=== PATIENT | male | born 1995 | race Caucasian/White ===

== ENCOUNTER 2017-05-24 12:30 | Emergency (ER) | payer SELFPAY ==
[2017-05-24 12:37] VITALS: BP 128/61; BMI 26.4
--- NOTE | 2017-05-24 13:08 | DR.GENAD ---
HPI - PCP Primary Care Physician: NFD - Complaint/Symptoms Chief Complaint Doctors Comments: Patient presents with complain of upper back pain for greater than two weeks. He denies any injury. He was seen two weeks ago while in [place] medicated with antibiotics according to patient; he was advised to follow up in two days if no better. Chief Complaint:: PATIENT STATED THAT HIS BACK HAS BEEN HURTING FOR THE LAST COUPLE OF WEEKS. HE STATED THAT HE WENT TO A ER IN [place] WITH THE PAIN AND HAS NEVER FOLLOWED UP WITH ANYONE. - Source History Provided: Patient - Mode of Arrival Mode of Arrival: Ambulatory - Timing Onset of Chief Complaint: 05/10/17 PMH - PMH Past Medical History: No Past Surgical History: Yes Surgical History: Ortho Surgery - Family History History of Family Medical Conditions: Yes Family Medical History: Cancer Family Medical History Comment: SEIZURES - Social History Does patient currently use any type of tobacco product: Yes Have you used tobacco products in the last 12 months: Yes Type of Tobacco Use: Cigars Does any household member use tobacco: No Alcohol Use: Occasionally Do you use any recreational Drugs:: No Lives With: Family Lives Where: Home - infectious screening In the last 2 months have you had wt loss of >10#?: NO Have you had fever, night sweats or hemotysis?: No Have you traveled outside the country in the last 6 months?: No Isolation: Standard ROS - Review of Systems Constitutional: No Symptoms Reported, Malaise ENTM: No Symptoms Reported Respiratoy: No Symptoms Reported Cardiovascular: No Symptoms Reported Gastrointestinal/Abdominal: No Symptoms Reported Genitourinary: No Symptoms Reported Neurological: No Symptoms Reported Musculoskeletal: No Symptoms Reported Integumentary: No Symptoms Reported Hematologic/Lymphatic: No Symptoms Reported Endocrine: No Symptoms Reported Psychiatric: No Symptoms Reported All Other Systems: Reviewed and Negative PE - Vital Signs Vitals: Temperature 96.9 F Pulse Rate 83 Respiratory Rate 20 Blood Pressure 128/61 O2 Sat by Pulse Oximetry 100 - General Limitations: No Limitations General Appearance: Alert, In No Apparent Distress - Head Head Exam: Normal Inspection, Atraumatic - Eyes Eye exam: Normal Appearance, PERRL, EOMI - ENT ENT Exam: Normal Exam TM/Canal Exam: Bilateral Normal Nose Exam: Normal Nose Exam Mouth Exam: Normal Inspection Throat Exam: Normal Inspection - Neck Neck Exam: Normal Inspection - Chest Chest Inspection: Normal Inspection - Respiratory Respiratory Exam: Normal Lung Sounds Bilat Respiratory Exam: Bilateral Clear to Auscultation - Cardiovascular Cardiovascular Exam: Regular Rate, Normal Rhythm - Abdominal Exam Abdominal Exam: Normal Inspection Abdominal Tenderness: negative: RUQ, RLQ, LUQ, LLQ, Epigastrium, Suprapubic, Diffuse, Mild, Moderate, Severe, Other - Extremities Extremities Exam: Normal Inspection, Full ROM - Back Back Exam: Normal Inspection, Full ROM. negative: Tenderness - Neurologic Neurological Exam: Alert, Oriented X3, CN II-XII Intact - Psychiatric Psychiatric Exam: Normal Affect - Skin Skin Exam: Warm, Dry, Intact ROR - XRAY XRAY Interpreted by: Self (Thoracic spine negative) - Diagnosis Discharge Problem: Thoracic spine pain - Discharge Plan Condition: Stable - Follow ups/Referrals Follow ups/Referrals: NFD,None [Primary Care Provider] - 3 days - Instructions
[2017-05-24] MEDS ORDERED: TORADOL 60 MG VIAL IM ONE (13:12)
[2017-05-24] MEDS ORDERED: TORADOL 60 MG VIAL ONE (13:21)
--- NOTE | 2017-05-24 15:56 | RAD ---
HISTORY: Back pain Study: 3 views of the thoracic spine. Comparison: None Findings: Grossly normal alignment of the thoracic spine. The disk space height is maintained. Vertebral body heights are grossly maintained. IMPRESSION: 1. Unremarkable examination of the thoracic spine. Reported By:
== END 2017-05-24 14:25 | disposition home or self-care (01) ==
LOC: ER 12:44
DX: M54.6 Pain in thoracic spine (principal)
CPT/HCPCS: 72072; 96372; 99282; J1885